=== PATIENT | female | born 1950 | race Two or more races ===

== ENCOUNTER → 2020-02-27 07:00 | Outpatient (CLI) | payer OTHER ==
[~2020-02-27 07:00] MED LIST: DILTIAZEM ER90 MG PO; DOLOGESIC 500-1 EACH PO; ETODOLAC600 MG PO; FLECAINIDE ACE100 MG PO; LOSARTAN POTASS50 MG PO; PROTONIX40 MG PO; REMINYL4 MG PO; RESTORIL30 M1 PO; ZOCOR20 MG PO; ZOLOFT20 MG/1 ML PO
== END | disposition home or self-care (01) ==
LOC: LAB 07:00 → ADM 09:45 → CIR.AMB 03-05 09:45 → EDSTATUS 03-05 09:45 → LAB 04-22 07:13
PROVIDERS: ATTEND Obstetrics & Gynecology Gynecology
DX: Z20.828 Contact with and (suspected) exposure to other viral communicable diseases (principal); D64.89 Other specified anemias; D78.89 Other postprocedural complications of the spleen; D03.8 Melanoma in situ of other sites; Z01.812 Encounter for preprocedural laboratory examination

== ENCOUNTER 2022-03-10 06:37 | Day surgery (SDC) | payer OTHER ==
[~2022-03-10 06:37] MED LIST changes: +CARVEDILOL6.25 MG; +NITROGLYCERIN0.4 MG SL
[2022-03-10] MEDS ORDERED: MACROBID 100 M100 MG PO (11:24)
[2022-03-10] MEDS ORDERED: ULTRACET PO (11:25)
[2022-03-11] MEDS ORDERED: VITAMIN B-121000 MC4 PO (23:05)
[2022-03-11] MEDS ORDERED: DRAMAMINE LESS25 MG (23:06)
[2022-03-11] MEDS ORDERED: CHILDREN'S ASPI81 MG (23:06)
[2022-03-11] MEDS ORDERED: FLECAINIDE ACE100 MG PO (23:07)
[2022-03-11] MEDS ORDERED: CARAFATE1 GM (23:07)
== END 2022-03-10 15:25 | disposition home or self-care (01) ==
LOC: CIR.AMB 06:37
PROVIDERS: ATTEND Obstetrics & Gynecology Gynecology
DX: R39.15 Urgency of urination (principal); N30.10 Interstitial cystitis (chronic) without hematuria; Z20.822 Contact with and (suspected) exposure to COVID-19; Z88.8 Allergy status to other drugs, medicaments and biological substances; Z95.0 Presence of cardiac pacemaker; I25.10 Atherosclerotic heart disease of native coronary artery without angina pectoris; I25.2 Old myocardial infarction; J45.909 Unspecified asthma, uncomplicated; G43.909 Migraine, unspecified, not intractable, without status migrainosus; K21.9 Gastro-esophageal reflux disease without esophagitis